=== PATIENT | male | born 1985 | race African-American/Black ===

== ENCOUNTER 2017-11-23 16:00 | Emergency (ER) | payer BC, OTHER ==
[2017-11-23 16:12] VITALS: BMI 29.8
[2017-11-23] MEDS ORDERED: ASPIRIN 81 MG CHEWABLE TABLETS PO ONE (16:12)
--- NOTE | 2017-11-23 16:12 | PDOC ---
Rapid Medical Evaluation Chief Complaint: Chest Pain Time Seen by Provider: 11/23/17 16:08 Medical Evaluation: Allergies Allergy/AdvReac Type Severity Reaction Status Date / Time No Known Allergies Allergy Verified 11/23/17 16:08 11/23/17 16:08 I have performed a brief in-person evaluation of this patient. The patient presents with a chief complaint of: midsternal chest pain since this afternoon "sitting while waiting for to get off work", "left arm hurts , and fingers getting numb." hx of IDDM, DKA, denies recent travel/surgeries Pertinent physical exam findings: well appearing I have ordered the following: cardiac workup The patient will proceed to the ED for further evaluation. Discharge Disposition - Diagnosis Chest pain - Referrals - Patient Instructions - Post Discharge Activity
[2017-11-23] MEDS ORDERED: ASPIRIN 81 MG CHEWABLE TABLETS ONE (16:48)
[2017-11-23 17:14] LABS: BASO % 0.3 % (0-2.0); EOS % 3.3 % (0-4.5); HEMATOCRIT 42.1 % (35.4-49); HEMOGLOBIN 14.4 GM/dL (11.7-16.9); LYMPH % 50.5 % (8-40); MCH 28.3 pg (25.7-33.7); MCHC 34.2 g/dl (32.0-35.9); MEAN CELL VOLUME 82.8 fl (80-96); MEAN PLT VOLUME 9.4 fl (7.5-11.1); MONO % 7.9 % (3.8-10.2); PLATELET COUNT 206 K/MM3 (134-434); RBC 5.08 M/mm3 (4.00-5.60); RDW 13.6 % (11.9-15.9); WHITE BLOOD COUNT 7.7 K/mm3 (4.0-10.0)
[2017-11-23 17:19] LABS: INR 0.94 (0.82-1.09); PROTHROMBIN TIME (PATIENT) 10.6 SEC (9.7-13.0)
[2017-11-23 17:28] LABS: ALBUMIN 3.8 g/dl (3.4-5.0); ANION GAP 5 (8-16); BLOOD UREA NITROGEN 16 mg/dL (7-18); CALCIUM 8.9 mg/dL (8.5-10.1); CHLORIDE 104 mmol/L (98-107); CO2 27 mmol/L (21-32); CREATININE 0.9 mg/dL (0.7-1.3); GLUCOSE,RANDOM 289 mg/dL (74-106); SGPT/ALT 18 U/L (12-78); SODIUM 136 mmol/L (136-145)
[2017-11-23 17:32] LABS: ALK PHOS 44 U/L (45-117); BILIRUBIN,TOTAL 0.4 mg/dL (0.2-1.0); TOT PROT 7.6 g/dl (6.4-8.2)
[2017-11-23 17:35] LABS: MAGNESIUM 1.8 mg/dL (1.8-2.4); POTASSIUM 4.4 mmol/L (3.5-5.1); SGOT/AST 14 U/L (15-37)
--- NOTE | 2017-11-23 17:39 | PDOC ---
History of Present Illness <Neena Monique - Last Filed: 11/23/17 19:45> - General History Source: Patient Exam Limitations: No Limitations - History of Present Illness Initial Comments: 11/23/17 17:46 The patient is a 32 year old male with a significant PMH of diabetes (on short and long acting insulin, and metformin) who presents to the emergency department with left sided chest pain prior to his arrival to the ER. The patient describes the left sided chest pain as a heaviness in character of gradual onset with pain radiating to the left arm and numbness to the left hand , lasting for about 1-2 hours with associated nausea, diaphoresis, and mild shortness of breath. The patient states he was waiting for his in the car prior to the onset of these symptoms. The patient denies similar symptoms in the past. The patient states he had a blood pressure of 157/95 this morning and typically runs blood pressures in the 140s/90s but denies taking any meds for HTN. The patient denies any cardiac history. The patient denies headache, dizziness, fever, chills, vomit, diarrhea and constipation. Denies dysuria, frequency, urgency and hematuria. Allergies: NKA Past surgical history: None reported. Social history: Former smoker; quit 2 years ago, smoked for 18 years ~1PPD. No reported alcohol or drug use. <Liset Bedoya - Last Filed: 11/23/17 21:44> - General Chief Complaint: Chest Pain Stated Complaint: CHEST PAIN Time Seen by Provider: 11/23/17 16:08 Past History - Past Medical History COPD: No Diabetes: Yes (IDDM) - Suicide/Smoking/Psychosocial Hx Smoking History: Never smoked Have you smoked in the past 12 months: No Information on smoking cessation initiated: No Hx Alcohol Use: No Drug/Substance Use Hx: No Substance Use Type: None <Neena Monique - Last Filed: 11/23/17 19:45> <Liset Bedoya - Last Filed: 11/23/17 21:44> - Past Medical History Allergies/Adverse Reactions: Allergies Allergy/AdvReac Type Severity Reaction Status Date / Time No Known Allergies Allergy Verified 11/23/17 16:08 Review of Systems - Review of Systems Able to Perform ROS?: Yes Comments:: 11/23/17 17:46 GENERAL/CONSTITUTIONAL: (+) Diaphoresis. No fever or chills. No weakness. HEAD, EYES, EARS, NOSE AND THROAT: No change in vision. No ear pain or discharge. No sore throat. CARDIOVASCULAR: (+) Chest pain. (+) Mild shortness of breath. RESPIRATORY: No cough, wheezing, or hemoptysis. GASTROINTESTINAL: (+) Nausea. No vomiting, diarrhea or constipation. GENITOURINARY: No dysuria, frequency, or change in urination. MUSCULOSKELETAL: No joint or muscle swelling or pain. No neck or back pain. SKIN: No rash NEUROLOGIC: No headache, vertigo, loss of consciousness, or change in strength/ sensation. ENDOCRINE: No increased thirst. No abnormal weight change. HEMATOLOGIC/LYMPHATIC: No anemia, easy bleeding, or history of blood clots. ALLERGIC/IMMUNOLOGIC: No hives or skin allergy. <Liset Bedoya - Last Filed: 11/23/17 21:44> *Physical Exam - Vital Signs Last Vital Signs Temp Pulse Resp BP Pulse Ox 98.2 F 92 H 18 156/95 100 11/23/17 16:08 11/23/17 16:08 11/23/17 16:08 11/23/17 16:08 11/23/17 16:08 <Neena Monique - Last Filed: 11/23/17 19:45> - Vital Signs Last Vital Signs Temp Pulse Resp BP Pulse Ox 98.2 F 92 H 18 156/95 100 11/23/17 16:08 11/23/17 16:08 11/23/17 16:08 11/23/17 16:08 11/23/17 16:08 - Physical Exam Comments: 11/23/17 17:49 GENERAL: Awake, alert, and fully oriented, in no acute distress HEAD: No signs of trauma EYES: PERRLA, EOMI, sclera anicteric, conjunctiva clear ENT: Auricles normal inspection, hearing grossly normal, nares patent, oropharynx clear without exudates. Moist mucosa NECK: Normal ROM, supple, no lymphadenopathy, JVD, or masses LUNGS: Breath sounds equal, clear to auscultation bilaterally. No wheezes, and no crackles HEART: Regular rate and rhythm, normal S1 and S2, no murmurs, rubs or gallops ABDOMEN: Soft, nontender, normoactive bowel sounds. No guarding, no rebound. No masses EXTREMITIES: Normal range of motion, no edema. No clubbing or cyanosis. No cords, erythema, or tenderness NEUROLOGICAL: Cranial nerves II through XII grossly intact. Normal speech, normal gait SKIN: Warm, Dry, normal turgor, no rashes or lesions noted. <Liset Bedoya - Last Filed: 11/23/17 21:44> Heart Score/ECG Review - History History: Moderately suspicious - Electrocardiogram EKG: Normal - Age Age: >/= 65 - Risk Factors Risk Factors Heart Score: Yes Hx Hypertension, Yes Hx Diabetes, Yes Smoking History Based on the list above the patient has:: >/=3 risk factors or Hx atherosclerotic disease - Troponin Troponin: </= normal limit - Score Heart Score - Total: 5 <Neena Monique - Last Filed: 11/23/17 19:45> ED Treatment Course - LABORATORY CBC & Chemistry Diagram: 11/23/17 16:45 11/23/17 16:45 - ADDITIONAL ORDERS Additional order review: 11/23/17 16:45 RBC 5.08 MCV 82.8 MCHC 34.2 RDW 13.6 MPV 9.4 Neutrophils % 38.0 L Lymphocytes % 50.5 H Monocytes % 7.9 Eosinophils % 3.3 Basophils % 0.3 - Medications Given in the ED: ED Medications Discontinued Medications Generic Name Dose Route Start Last Admin Trade Name Freq PRN Reason Stop Dose Admin Aspirin 162 mg 11/23/17 16:12 11/23/17 16:50 Asa - PO 11/23/17 16:13 162 mg ONCE ONE Administration <Neena Monique - Last Filed: 11/23/17 19:45> - LABORATORY CBC & Chemistry Diagram: 11/23/17 16:45 11/23/17 16:45 - ADDITIONAL ORDERS Additional order review: Laboratory Results 11/23/17 16:45 Sodium 136 Potassium 4.4 Chloride 104 Carbon Dioxide 27 Anion Gap 5 L BUN 16 Creatinine 0.9 Creat Clearance w eGFR > 60 Random Glucose 289 H Calcium 8.9 Magnesium 1.8 Total Bilirubin 0.4 AST 14 L ALT 18 Alkaline Phosphatase 44 L Creatine Kinase 92 Troponin I < 0.02 Total Protein 7.6 Albumin 3.8 11/23/17 16:45 RBC 5.08 MCV 82.8 MCHC 34.2 RDW 13.6 MPV 9.4 Neutrophils % 38.0 L Lymphocytes % 50.5 H Monocytes % 7.9 Eosinophils % 3.3 Basophils % 0.3 - Medications Given in the ED: ED Medications Discontinued Medications Generic Name Dose Route Start Last Admin Trade Name Camryn PRN Reason Stop Dose Admin Aspirin 162 mg 11/23/17 16:12 11/23/17 16:50 Asa - PO 11/23/17 16:13 162 mg ONCE ONE Administration <Liset Bedoya - Last Filed: 11/23/17 21:44> Medical Decision Making - Medical Decision Making 11/23/17 17:35 Pt presents to the ED complaining of the acute onset of L sided chest pain radiating down the left arm. Pain is concerning for ACS and HEART score is 4 assuming negative troponin. Will check labs and cardiac enzymes. EKG is NSR without ST changes, and patient was given ASA in RME. Will admit to medicine for rule out ACS. 11/23/17 17:38 11/23/17 18:06 First set of cardiac enzymes is negative. I have spoken at length with the patient and his and he is very reluctant to stay. I have explained to him that based on the nature of his pain and his medical history, he is at moderate risk for ACS, so I urged him to stay for admission. The patient is willing to stay for a second set of cardiac enzymes, but is unwilling to stay for admission. He understands the risk of ACS, IN and . Will draw 4 hour set of cardiac enzymes and reevaluate the patient. <Neena Monique - Last Filed: 11/23/17 19:45> *DC/Admit/Observation/Transfer - Discharge Dispostion Admit: No <Neena Monique - Last Filed: 11/23/17 19:45> - Attestations Scribe Attestion: 11/23/17 17:50 Documentation prepared by Liset Bedoya, acting as medical billing and coding specialist for Neena Monique MD. <Liset Bedoya - Last Filed: 11/23/17 21:44> Diagnosis at time of Disposition: Chest pain Qualifiers: Chest pain type: other chest pain Qualified Code(s): R07.89 - Other chest pain - Discharge Dispostion Disposition: AGAINST MEDICAL ADVICE Condition at time of disposition: Good - Referrals Referrals: ON STAFF,NOT [Primary Care Provider] - - Patient Instructions Printed Discharge Instructions: DI for Chest Pain Additional Instructions: Please return to the hospital for any further symptoms, especially chest pain that comes back. You are at risk for a heart attack and should avoid physical exertion untill you are cleared by a router machine operator. Even though you are leaving AMA, you should still return for medical care for new or worsening symptoms. you MUST see your doctor on Sunday. - Post Discharge Activity
[2017-11-23 22:02] VITALS: BP 150/90; PULSE 90; TEMP 98
--- NOTE | 2017-11-24 11:34 | EKG ---
Test Reason : Blood Pressure : / mmHG Vent. Rate : 088 BPM Atrial Rate : 088 BPM P-R Int : 148 ms QRS Dur : 082 ms QT Int : 338 ms P-R-T Axes : 038 006 031 degrees QTc Int : 408 ms NORMAL SINUS RHYTHM NORMAL ECG NO PREVIOUS ECGS AVAILABLE Confirmed by BLAKE HERNÁNDEZ MD ([id number]) on 11/24/2017 11:33:48 AM Referred By: Confirmed By:BLAKE HERNÁNDEZ MD
== END 2017-11-23 22:03 | disposition left against medical advice (07) ==
LOC: JER 16:00
DX: R07.89 Other chest pain (principal); E11.9 Type 2 diabetes mellitus without complications; Z79.4 Long term (current) use of insulin
CPT/HCPCS: 36415; 71046-TC-FY; 80053; 82550; 83735; 84484; 85025; 85610; 93005; 93010; 99284-25